=== PATIENT | female | born 1965 | race African-American/Black ===

== ENCOUNTER 2017-11-14 14:07 | Emergency (ER) | payer SELFPAY ==
[2017-11-14 15:22] LABS: #Eosinphils 0.4 thou/uL (0.0-0.7); #Lymphocytes 1.7 thou/uL (1.20-3.40); #Monocytes 0.8 thou/uL (0.11-0.59); #Neutrophils 9.1 thou/uL (1.40-6.50); %Basophils 0.3 % (0.0-1.0); %Lymphocytes 14.2 % (21.0-51.0); %Monocytes 6.8 % (0.0-10.0); %Neutrophils 75.7 % (42.0-75.0); Hemoglobin 12.8 g/dL (12.0-16.0); Mean Corpuscular HGB CONC 32.3 g/dL (32.0-36.0); Mean Corpuscular Hemoglobin 28.4 pg (27.0-31.0); Mean Corpuscular Volume 87.9 fl (81.0-99.0); Mean Platelet Volume 6.9 fL (7.4-10.4); Platelet Count 407 thou/uL (130-400); RBC Distribution Width 12.8 % (11.5-14.5); Red Blood Cell (RBC) Count 4.49 mill/uL (4.20-5.40)
[2017-11-14 15:43] LABS: ALT (SGPT) 55 U/L (8-55); AST (SGOT) 45 U/L (5-34); Albumin 3.2 g/dL (3.5-5.0); Alkaline Phosphatase 153 U/L (40-150); Anion Gap 15 mmol/L (10-20); BUN (Urea Nitrogen) 13 mg/dL (9.8-20.1); Bilirubin, Total 0.5 mg/dL (0.2-1.2); Calc. Creatinine Clearance 0 mL/min (70-130); Calcium 9.2 mg/dL (7.8-10.44); Carbon Dioxide 28 mmol/L (22-29); Chloride 98 mmol/L (98-107); Estimated GFR-MDRD Greater than 90; Globulin 4.6 g/dL (2.4-3.5); Glucose 96 mg/dL (70-105); Potassium 3.2 mmol/L (3.5-5.1); Protein, Total 7.8 g/dL (6.0-8.3); Sodium 138 mmol/L (136-145)
--- NOTE | 2017-11-14 16:07 | RAD ---
RADIOGRAPH CHEST 1 VIEW: Date: 11/14/17 Time: 3:14 p.m. HISTORY: 52-year-old female with cough. COMPARISON: 02/23/15 FINDINGS: The lungs are hypoinflated. Horizontally oriented streaky densities at the left base appears more pro minent on the current study compared to the previous. This is probably scar. The other possibility is subsegmental atelectasis. Much more subtle, but similar findings are noted at the right base. The up per lobes are clear of consolidation and pulmonary edema. There is a questionable faint, flame-shaped low density lesion, versus artifact, in the left upper lobe. No cardiomegaly or pneumothorax. The pr eviously demonstrated right subclavian central vascular catheter has been removed. IMPRESSION: 1. Bibasilar pulmonary scar and/or subsegmental atelectasis. 2. Faint nodular opacity in the left suprahilar upper lobe. Artifact versus real. 3. No definitive evidence of pneumonia. 4. Followup recommended. TWAN [] POS: [facility]
[2017-11-14] MEDS ORDERED: Albuterol Sulfate 2.5 mg/0.5 ml Neb ONE (16:42)
[2017-11-14] MEDS ORDERED: Albuterol Sulfate 2.5 mg/3 ml Neb ONE (16:42)
[2017-11-14] MEDS ORDERED: Potassium Chloride 20 MEQ TAB ONE (17:03)
[2017-11-14] MEDS ORDERED: predniSONE 20 MG TAB ONE (17:03)
== END 2017-11-14 18:11 | disposition home or self-care (01) ==
LOC: ERS 14:07
DX: J40 Bronchitis, not specified as acute or chronic (principal); F41.9 Anxiety disorder, unspecified; F32.9 Major depressive disorder, single episode, unspecified; Z79.899 Other long term (current) drug therapy
CPT/HCPCS: 36415; 71045; 80053; 85025; 94640; J7506; J7611

== ENCOUNTER 2018-02-09 19:48 | Inpatient (IN) | payer SELFPAY ==
[2018-02-09 20:39] LABS: Actual Bicarbonate (HCO3a) 19.1 mEq/L (22-28); Base Excess (BEa) -3.7 mEq/L (-2.0 to +3.0); CO2 Tension 28.1 mmHg (35.0-45.0); Hematocrit-ABG 40.2 % (36.0-47.0); O2 Tension (PaO2) 78.6 mmHg (80.0-100.0); pH, Arterial 7.45 (7.35-7.45)
[2018-02-09 20:40] LABS: ALV-art Gradient 599.275 (0-20); Analyzer IN Cardio ER; Hemoglobin (Hb) 12.5 g/dL (12.0-16.0); Puncture Site LRA
[2018-02-09] MEDS ORDERED: Potassium Chloride 20 MEQ/100 ML PREMIX BAG ONE (21:15)
[2018-02-09] MEDS ORDERED: Rocuronium Bromide 50 MG/5 ML VIAL ONE (21:24)
[2018-02-09] MEDS ORDERED: Succinylcholine Chloride 20 MG/ML 10 ml SYRINGE FS ONE (21:30)
[2018-02-09] MEDS ORDERED: Fentanyl 100 MCG/2 ML VIAL ONE (21:46)
[2018-02-09] MEDS ORDERED: Propofol 1,000 MG/100 ML VIAL IV ONE (21:48)
[2018-02-09] MEDS ORDERED: Propofol BOLUS 1,000 MG/100 ML VIAL IV PRN ×2 (21:53→23:25)
[2018-02-09] MEDS ORDERED: fentaNYL Citrate/PF 2,000 MCG in Sodium Chloride 0.9% 60 ML IV SCH ×2 (21:53→23:25)
[2018-02-09] MEDS ORDERED: DISCONTINUE PREVIOUS NARCOTIC PAIN MEDICATIONS AND BENZODIAZEPINES FS SCH ×2 (21:53→23:25)
[2018-02-09] MEDS ORDERED: Propofol 1,000 MG/100 ML VIAL IV PRN (21:53)
[2018-02-09] MEDS ORDERED: Fentanyl BOLUS 250 ML IVPB PRN ×2 (21:53→23:25)
[2018-02-09 22:12] LABS: Actual Bicarbonate (HCO3a) 18.5 mEq/L (22-28); Base Excess (BEa) -6.4 mEq/L (-2.0 to +3.0); CO2 Tension 35.3 mmHg (35.0-45.0); Hematocrit-ABG 41.8 % (36.0-47.0); O2 Tension (PaO2) 98.7 mmHg (80.0-100.0); pH, Arterial 7.34 (7.35-7.45)
[2018-02-09 22:14] LABS: ALV-art Gradient 570.175 (0-20); Analyzer IN Cardio ER; Calcium, Ionized 1.1 mmol/L (1.12-1.30); Puncture Site RRA
[2018-02-09] MEDS ORDERED: Benzocaine 20% Spray 60 ML CAN ONE (23:07)
[2018-02-09] MEDS ORDERED: Ondansetron HCl/PF 4 MG/2 ML Vial IVP PRN (23:18)
[2018-02-09] MEDS ORDERED: Ventilator Sedation Protocol 1 EACH FS ONE (23:21)
[2018-02-09] MEDS ORDERED: Lorazepam 2 MG/ML VIAL SLOW IVP PRN (23:25)
[2018-02-09 23:43] LABS: Bilirubin Small (Negative); Blood, Urine Small (Negative); Clarity CLEAR (Clear); Glucose, Urine (Dipstick) Negative (Negative); Leukocyte Negative (Negative); Nitrite Negative (Negative); Protein, Urine (Dipstick) 100 mg/dL (Neg-Trace)
[2018-02-09] MEDS ORDERED: Vancomycin HCl 1 GM in Premix Bag 1 BAG IVPB SCH (23:45)
[2018-02-09 23:46] LABS: Bacteria/HPF None Seen HPF (None Seen); Hyaline Casts/LPF 0-3 HYALINE CAST LPF (0-3 Hyaline); RBC/HPF None Seen HPF (0-3); Squamous Epithelial None Seen HPF (0-3); WBC/HPF None Seen HPF (0-3)
[2018-02-09 23:51] LABS: Specific Gravity, Urine 1.056 (1.002-1.036)
[2018-02-09] MEDS ORDERED: Piperacillin/Tazobactam 3.375 GM in Sodium Chloride 0.9% 100 ML IVPB SCH (23:59)
--- NOTE | 2018-02-10 00:33 | RAD ---
ONE VIEW CHEST: HISTORY: Intubation. COMPARISON: 02/09/2018 at 4:41 p.m. FINDINGS: Interval placement of an endotracheal tube at the level of the clavicles. Worsening interstitial and alveolar infiltrates, with a predominantly perihilar distribution. IMPRESSION: 1. Worsening infiltrates. 2. Interval placement of endotracheal tube. POS: [facility]
[2018-02-10] MEDS: Sodium Chloride 0.9% 1,000 ML IV SCH ×2 (01:23→09:32)
[2018-02-10 01:47] VITALS: BMI 31.9
--- NOTE | 2018-02-10 01:49 | RAD ---
CHEST ONE VIEW: HISTORY: Status post OG placement. COMPARISON: 02/09/2018 at 9:58 p.m. FINDINGS: Interval placement of an orogastric tube, terminating in the left upper quadrant. Stable endotrachea l tube. Persistent opacification of the lung parenchyma. IMPRESSION: Interval placement of orogastric tube. Otherwise, no change. POS: [facility]
[2018-02-10] MEDS: Piperacillin/Tazobactam 3.375 GM in Sodium Chloride 0.9% 100 ML IVPB SCH ×4 (02:48→21:58)
[2018-02-10] MEDS ORDERED: Sodium Chloride 0.9% 1,000 ML IV SCH (03:15)
[2018-02-10] MEDS ORDERED: CCU Electrolyte Replacement 1 EACH FS ONE (03:19)
[2018-02-10] MEDS ORDERED: Potassium Phosphate 15 MMOL in Sodium Chloride 0.9% 250 ML 250 ML IV PRN (03:33)
[2018-02-10] MEDS ORDERED: CCU ELECTROLYTE REPLACEMENT PROTOCOL FS PRN (03:33)
[2018-02-10] MEDS ORDERED: Magnesium Oxide 400 MG TAB PO PRN ×2 (03:33)
[2018-02-10] MEDS ORDERED: Potassium Phosphate 9 MMOL in Sodium Chloride 0.9% 100 ML IVPB PRN (03:33)
[2018-02-10] MEDS ORDERED: Potassium Phosphate 12 MMOL in Sodium Chloride 0.9% 250 ML 250 ML IV PRN (03:33)
[2018-02-10] MEDS ORDERED: Potassium Chloride 40 MEQ in Sodium Chloride 0.9% 250 ML 250 ML IVPB PRN (03:33)
[2018-02-10] MEDS ORDERED: Potassium Chloride 20 MEQ TAB PO PRN (03:33)
[2018-02-10] MEDS ORDERED: Potassium Chloride 40 MEQ in Premix Bag 1 BAG IVPB PRN (03:33)
[2018-02-10] MEDS ORDERED: Magnesium 2 GM/NS 0.9% 100 ML 2 GM in Premix Bag 1 BAG IVPB PRN (03:33)
[2018-02-10 05:13] LABS: Troponin I 1.372 ng/mL (< 0.028)
[2018-02-10 05:18] LABS: Anion Gap 16 mmol/L (10-20); BUN (Urea Nitrogen) 14 mg/dL (9.8-20.1); Calc. Creatinine Clearance 97 mL/min (70-130); Carbon Dioxide 16 mmol/L (22-29); Chloride 109 mmol/L (98-107); Estimated GFR-MDRD 84; Glucose 204 mg/dL (70-105); Potassium 3.7 mmol/L (3.5-5.1); Sodium 137 mmol/L (136-145)
[2018-02-10 06:44] LABS: Hemoglobin 13.2 g/dL (12.0-16.0); Mean Corpuscular HGB CONC 32.8 g/dL (32.0-36.0); Mean Corpuscular Hemoglobin 28.4 pg (27.0-31.0); Mean Corpuscular Volume 86.8 fL (78.0-98.0); Platelet Count 360 thou/uL (130-400); Red Blood Cell (RBC) Count 4.63 mill/uL (4.20-5.40); White Blood Cell (WBC) Count 24.4 thou/uL (4.8-10.8)
[2018-02-10 06:48] LABS: Band 7 % (5-11); Lymphocytes 8 % (21-51); MDiff Complete? YES; Monocytes 5 % (0-10); Neutrophil 80 % (42-75)
[2018-02-10 07:48] LABS: Actual Bicarbonate (HCO3a) 18.7 mEq/L (22-28); Base Excess (BEa) -7.9 mEq/L (-2.0 to +3.0); CO2 Tension 42.6 mmHg (35.0-45.0); O2 Tension (PaO2) 76.4 mmHg (80.0-100.0); pH, Arterial 7.26 (7.35-7.45)
[2018-02-10 07:49] LABS: Hemoglobin (Hb) 12.8 g/dL (12.0-16.0); Puncture Site RRA
--- NOTE | 2018-02-10 07:57 | HP ---
CODE STATUS: FULL CODE. TIME OF EVALUATION: 2230 hours. PRIMARY CARE PHYSICIAN: Broderick Santos M.D. CHIEF COMPLAINT: Worsening shortness of breath. HISTORY OF PRESENT ILLNESS: This is a 52 years old female patient with past medical history of heart murmur, BPPV, patient came to the hospital after having severe gradually worsening shortness of marko th, she was transferred from [facility], and the patient had the symptoms for 2 weeks, but getting w orse today, the patient was seen in ER and was on monitor with respiratory treatment, patient m ask, and therefore intubated, due to acute hypoxic respiratory failure. Symptoms are severe, likely triggered by underlying pneumonia, no alleviating factors. REVIEW OF SYSTEMS: The patient was intubated and sedated by the time of my evaluation. PAST MEDICAL HISTORY: Heart murmur, BPPV, chronic nausea and vomiting. PAST SURGICAL HISTORY: Cholecystectomy, laparoscopic. PSYCHIATRIC HISTORY: Positive for anxiety. SOCIAL HISTORY: No alcohol, no drug use. KNOWN ALLERGIES: No known drug allergies. REPORTED MEDICATIONS: Trazodone, K-Dur, sertraline, hydroxyzine, olanzapine, ondansetron. PHYSICAL EXAMINATION: VITAL SIGNS: On presentation, blood pressure 116/74, with heart rate 103, respiratory rate was 34, t emperature 98.1, oxygen saturation 94% on nonrebreather and beginning intubation. GENERAL APPEARANCE: The patient is intubated, sedated. HEENT: Eyes: Normal conjunctivae. Moist oral mucosa. Anicteric. NECK: No JVD. RESPIRATORY: Bilateral air entry. The patient has bilateral rales, symmetric expansion. CARDIOVASCULAR: Normal rate, regular rhythm, no murmurs, no gallop, no edema. ABDOMEN: Soft, normal bowel sounds. MUSCULOSKELETAL: Baseline range of motion and strength. No tenderness. SKIN: Warm and intact. No pallor or rash or redness. NEUROLOGIC: The patient is intubated, sedated, unable to fully explore. PSYCHIATRIC: The patient is intubated and sedated, unable to fully explore. The EKG was reviewed by myself. The patient has sinus tachycardia at the rate of 102. ST segment an d T waves are normal. Chest x-ray was reviewed. The patient had ET tube placement worsening i nfiltrates. LABORATORY DATA: ABG post-intubation was reviewed. The patient has pH of 7.34 with pO2 of 98, oxyge n 98.7, mode support volume control, mechanical rate 15, oxygen 100, tidal volume 400, PEEP 5. Urine was done and was negative. Hematology: White count 25, hemoglobin 13, MCV 74, platelet count 377. Chemistry was reviewed. The patient has sodium 135, potassium 2.6, anion gap 21, carbon dioxide 18, creatinine 0.8, glucose 179. Lactic acid 2.8, calcium 9.3, total bilirubin 1.3. AST 49, ALT 101, a lkaline phosphatase 178. Troponin 0.33. Beta natriuretic peptide 106. Urine was done and was negat ben. ASSESSMENT AND PLAN: The patient will be placed in the ICU for the following medical problems. 1. Multilobar pneumonia, patient will be placed on antibiotics, reconcile antibiotics depending on c ulture results, this problem is leading to respiratory failure needing intubation. 2. Acute hypoxic respiratory failure. The patient did not tolerate nonrebreather mask, was elective ly intubated. We will call Pulmonary for assistance with this patient. 3. Sepsis. The patient came in with tachycardia, tachypnea, respiratory failure, sources of multilo bar pneumonia. Continue hydration, treatment as above. 4. Hypokalemia. The patient's potassium 2.6. We will replace electrolytes as needed. Electrolyte replacement protocol. 5. Hyponatremia. Sodium 135, this is mild, no need for any acute intervention. The patient already getting fluids. 6. Hyperglycemia, glucose 179, we will monitor, no need for any acute intervention at this point. 7. Non ST elevation myocardial infarction type 2, likely secondary to underlying sepsis. We will tr end troponins, we will treat the underlying condition. 8. Possible component of underlying congestive heart failure, beta natriuretic peptide was 106, we w ill do echo in the morning. 9. Deep venous thrombosis prophylaxis.
[2018-02-10] MEDS ORDERED: Furosemide 40 MG/4 ML VIAL SLOW IVP SCH (08:45)
[2018-02-10] MEDS ORDERED: Doxycycline 100 MG in Syringe 0 ML IVPB SCH (09:00)
[2018-02-10] MEDS: Famotidine/PF 20 mg/2ml Vial SLOW IVP SCH ×2 (09:31→22:51)
[2018-02-10] MEDS: Enoxaparin Sodium 40 MG/0.4 ML SYRINGE SC SCH (09:31)
[2018-02-10 10:01] LABS: Amphetamine Not Detected (NotDetected); Barbiturates Screen Not Detected (NotDetected); Benzodiazepine Screen Not Detected (NotDetected); Cocaine Metabolite Screen Not Detected (NotDetected); Medtox Control Line Valid? VALID (VALID); Medtox Reader # READER 1; Methadone Not Detected (NotDetected); Methamphetamine Not Detected (NotDetected); Opiate Screen Not Detected (NotDetected); Oxycodone Screen Not Detected (NotDetected); Phencyclidine (PCP) Not Detected (NotDetected); THC/Cannabinoid Screen Not Detected (NotDetected); Tricyclic Screen Not Detected (NotDetected)
[2018-02-10] MEDS: Vancomycin HCl 1.25 GM in Sodium Chloride 0.9% 250 ML 250 ML IVPB SCH ×2 (11:15→22:50)
[2018-02-10] MEDS ORDERED: EPINEPHrine 1 MG/10 ML Abboject SYRINGE ONE ×2 (12:00→21:38)
--- NOTE | 2018-02-10 12:36 | CON ---
DATE OF CONSULTATION: 02/10/2018 REASON FOR CONSULTATION: Respiratory insufficiency. HISTORY OF PRESENT ILLNESS: Mrs. Gardiner is a 52-year-old -[place] female who comes to the [facility] for shortness of breath. She was in respiratory distress and ended up being intubated due to n ot tolerating BiPAP. She is currently sedated and intubated and unable to give me any history. Look ing back at her notes, she has been in the ER several times in the last 4-5 months. Every time she c omes in, she is very anxious and she was given Ativan and sent home. The last time she was seen, she was positive for methamphetamines on her urine drug screen. At this time around, she was evaluated for this respiratory insufficiency and a CT of the chest showed bilateral infiltrates which could be pulmonary edema versus infection. Because of her elevated white count, it was thought to be infectio n. She was started on antibiotics. Cardiology is being consulted as her troponins are starting to e levate. PAST MEDICAL HISTORY: 1. History of a heart murmur. 2. History of benign positional paroxysmal vertigo. 3. Chronic nausea and vomiting. 4. Anxiety. PAST SURGICAL HISTORY: Cholecystectomy. OUTPATIENT MEDICATIONS: Include, 1. Zofran daily. 2. Zyprexa. 3. Atarax. 4. Trazodone. 5. Zoloft. 6. Potassium twice a day. ALLERGIES: No known drug allergies. SOCIAL HISTORY: Per chart review, it states no alcohol, tobacco, or drugs; however, she has had posi tive drug screen for methamphetamines. REVIEW OF SYSTEMS: Unobtainable as the patient is sedated and intubated. PHYSICAL EXAMINATION: VITAL SIGNS: Temperature 97.8, pulse 98, respiratory rate 19, satting 98% on 100% FiO2. GENERAL: Sedated and intubated. LUNGS: Have coarse breath sounds bilaterally. CARDIOVASCULAR: S1, S2, tachycardic. I do not appreciate any murmurs; however, distant heart sounds due to coarse breath sounds. ABDOMEN: Soft, positive bowel sounds. EXTREMITIES: No edema. SKIN: Warm and dry. LABORATORY DATA AND IMAGING DATA: Laboratory work was reviewed. CBC with white count of 24, hemoglo bin of 13, hematocrit 40, platelet count of 360. ABGs were reviewed. Chemistries were reviewed, unr emarkable except for potassium was 3.23 and replaced and now. Troponin was 1.3 up from 0.9. UA with small amount of blood, small amount of bilirubin. CT of the thorax was reviewed, bilateral infiltrates suggestive either edema versus infection. Echocardiogram reviewed. Severely depressed EF at about 10%-15%. The only bryanna segments are the proximal segments and they are also mildly hypokinetic, otherwise severe hypokinesis. No apical ballooning is seen. This is suggestive of either a large LAD would not go with her level of tr oponin versus Takotsubo cardiomyopathy. This may also just be dilated cardiomyopathy related to drug use. ASSESSMENT AND PLAN: 1. Acute on chronic systolic heart failure. 1. Acute hypoxic respiratory insufficiency. 2. Possible pneumonia. 3. Anxiety. 4. Chronic nausea and vomiting. 5. Ngt-VD-neybdxt elevation myocardial infarction. PLAN: 1. We will try to start diuresing her. Hopefully, her blood pressure will hold. If it does not, sh e may need to be started on inotropic support. I would pick dopamine first. 2. IV antibiotics per primary team. 3. Try to keep potassium above 3.5. 4. We will likely need a heart catheterization once more stable. The amount of myocardium that is s everely hypokinetic would make her troponin be above assay limit and at the level it is right now, th is elevated troponin is most likely demand ischemia from her current illness. Thank you for allowing us to participate in the care of your patient. We will continue to follow.
--- NOTE | 2018-02-10 13:32 | PDOC.EVN ---
Event Note - Event Note Event Note: Reviewed the patient's record and examined the patient. She is stable on the vent. Easily awakened. Still has some pulmonary rales. Has severely decreased EF at 10-15% and global hypokinesis. Pulmonary edema v. pneumonia. Getting diuresis and antibiotic coverage.
[2018-02-10] MEDS: Furosemide 40 MG/4 ML VIAL SLOW IVP SCH (13:38)
[2018-02-10 13:42] LABS: Actual Bicarbonate (HCO3a) 16.1 mEq/L (22-28); Base Excess (BEa) -10.3 mEq/L (-2.0 to +3.0); CO2 Tension 37.5 mmHg (35.0-45.0); O2 Tension (PaO2) 84.7 mmHg (80.0-100.0); pH, Arterial 7.25 (7.35-7.45)
[2018-02-10 13:43] LABS: Hemoglobin (Hb) 12.9 g/dL (12.0-16.0)
[2018-02-10 13:45] LABS: ALV-art Gradient 224.925 (0-20); Calcium, Ionized 1.1 mmol/L (1.12-1.30); Puncture Site RRA
[2018-02-10] MEDS ORDERED: Furosemide 100 MG/10 ML VIAL SLOW IVP SCH (14:00)
[2018-02-10] MEDS: Propofol 1,000 MG/100 ML VIAL IV PRN (14:42)
[2018-02-10] MEDS ORDERED: EPINEPHrine 1 MG, Admixture Fee 1 EACH in Dextrose 5% in Water 250 ML IVPB SCH (21:00)
[2018-02-10] MEDS ORDERED: Sodium Bicarb 50 MEQ/50 ML Abboject 8.4% SYRINGE ONE (21:10)
[2018-02-10 21:13] LABS: CO2 Tension 33.1 mmHg (35.0-45.0); pH, Arterial 7.16 (7.35-7.45)
[2018-02-10 21:14] LABS: Actual Bicarbonate (HCO3a) 11.5 mEq/L (22-28); Base Excess (BEa) -18.1 mEq/L (-2.0 to +3.0)
[2018-02-10 21:15] LABS: Hematocrit-ABG 39.9 % (36.0-47.0); Hemoglobin (Hb) 12.9 g/dL (12.0-16.0)
[2018-02-10 21:16] LABS: Puncture Site FEMORAL
[2018-02-10 21:18] LABS: ALV-art Gradient 263.625 (0-20)
[2018-02-10] MEDS: Sodium Bicarb 50 MEQ/50 ML Abboject 8.4% SYRINGE IVP SCH ×2 (21:23→23:42)
[2018-02-10] MEDS: EPINEPHrine 4 MG in Dextrose 5% in Water 250 ML IV SCH (21:23)
[2018-02-10] MEDS: Sodium Bicarbonate 150 MEQ in Dextrose 5% in Water 1,000 ML IV SCH (21:23)
[2018-02-10] MEDS ORDERED: methylPREDNISolone Sod Succ/PF 125 MG/2 ML VIAL IVP SCH (21:30)
[2018-02-10] MEDS ORDERED: Magnesium 5 GM/10 ML Abboject SYRINGE ONE (21:38)
[2018-02-10 21:46] LABS: Actual Bicarbonate (HCO3a) 18.3 mEq/L (22-28); CO2 Tension 45.8 mmHg (35.0-45.0); O2 Tension (PaO2) 89.7 mmHg (80.0-100.0); pH, Arterial 7.22 (7.35-7.45)
[2018-02-10 21:47] LABS: Base Excess (BEa) -9.1 mEq/L (-2.0 to +3.0); Calcium, Ionized 0.9 mmol/L (1.12-1.30); Hemoglobin (Hb) 10.9 g/dL (12.0-16.0)
[2018-02-10 21:48] LABS: Puncture Site FEMORAL
[2018-02-10] MEDS ORDERED: Vasopressin 40 UNIT, Admixture Fee 1 EACH in Sodium Chloride 0.9% 100 ML IV SCH (22:30)
--- NOTE | 2018-02-10 22:43 | CON ---
DATE OF CONSULTATION: 02/10/2018 SUBJECTIVE: This is a 52-year-old female. It really had a short period of symptoms prior to coming to the hospital. She told her mother that she was not feeling well and [facility] breath and malaise. Prior to the admissions, her symptoms had only been mild. Her sister says that she may have been fahad d she has lupus recently. She subsequently has been intubated and is mechanically ventilated. PAST MEDICAL HISTORY: Remarkable for cholecystectomy in the past and history of heart murmur. SOCIAL HISTORY: She is nonsmoker, nondrinker and nondrug user. ALLERGIES: She has no drug allergies. MEDICATIONS: Prior to admission, she was on trazodone for anxiety, potassium, Zoloft, hydroxyzine, o lanzapine and Zofran. PHYSICAL EXAMINATION: GENERAL: She was sedated for mechanical ventilation. VITAL SIGNS: Blood pressure 116/78, heart rate 107, respiratory rate is 24. She is afebrile. HEENT: Pupils are equal. Sclerae is anicteric. NECK: Supple. LUNGS: Remarkable for rhonchi bilaterally. HEART: Regular rhythm. S1 and S2 are normal. Grade 2/6 systolic murmur. ABDOMEN: Soft and nontender. EXTREMITIES: Without asymmetry or edema. NEUROLOGIC: Grossly nonfocal. She spontaneously moves all extremities. LABORATORY DATA: White count 24.4, hemoglobin 13.2, platelets 360,000, 80 segs, 7 bands. Sodium 137 , potassium 3.7, chloride 109, bicarbonate 16, BUN 14, creatinine 0.8. Blood gas; 7.26, pCO2 of 42, pO2 of 76. Airway plateau pressure with a tidal volume of 400 was in the high 30s to low 40s, so we placed on bi level ventilation. Repeat blood gas shows pH 7.25, pCO2 37, pO2 84. Her rate was increased from 20-24. IMAGING DATA: Chest radiograph shows patchy bilateral alveolar infiltrates. IMPRESSION: Community-acquired pneumonia. I doubt this is alveolar hemorrhage associated with lupus or lupus flare, but this must be kept in mind. Need to talk to family and see who made "diagnosis o f lupus." We will be happy to follow with the other physicians caring for her. Hopefully, she will stabilize, met with family and answered all their questions. Critical care time 40 minutes.
[2018-02-10] MEDS: Thiamine HCl 200 MG/2 ML VIAL SLOW IVP SCH (22:51)
[2018-02-11] MEDS: EPINEPHrine 4 MG in Dextrose 5% in Water 250 ML IV SCH ×4 (00:24→14:25)
--- NOTE | 2018-02-11 01:36 | PRG ---
DATE OF SERVICE: 02/10/2018 This is a critical care progress note counseling 90 minutes of critical care time at the bedside. I was contacted by critical care nurses. Ms. Gardiner' blood pressure had been declining. Blood gas was done showing progressive acidemia. I attended at the bedside shortly thereafter. An epinephrine drip was started prior to my arrival. Blood pressure was in the 70s when I arrived, heart rate was surprisingly only in the 90s. She was unresponsive. She had equal breath sounds. Her exhaled tidal volumes are not changed significantly from earlier in the day. PH was 7.16, pCO2 of 33, pO2 of 49. I elected to place an arterial line and the central line. For brief period, she did not have a detectable blood pressure, but did have a weak and thready pulse. A 0.5 mg of epinephrine was given, which brought her blood pressure up to 130/100 by cuff. At that point, I could feel an excellent pulse in her left groin. Her left femoral vein was cannulated with a needle and a J-wire was inserted. A left femoral artery was cannulated with a needle and a J-wire was inserted. Central line and arterial line was then inserted. Bicarbonate has been given intravenously plus bicarbonate drip has been started. She will be given IV vitamin C and thiamine as well as continue with pressors and steroids. Hopefully, we will see gradual improvement overnight. I met with the . The nurses thought they can smell alcohol in his breath. I met with her sister is a former employer at [employer], I know very well. I have also met with the mother and explained that will be fortunate if we get her through the night. We will continue with aggressive support, because of her young age, but her multiple comorbidities will dramatically decreased her chances of survival. She will most certainly develop renal failure. It is interesting to note that she is not bacteremic per cultures that have been checked so far. Hopefully, we will see stabilization overnight, but prognosis is extremely guarded. I have explained to the that I am not think there is a high likelihood that she may not survive. He became very insistent transiently that he be allowed to go in the room. We are trying to put lines and we almost had to call security, but I did convince him to go sit in the conference room. He has been cooperative since that point. Critical care time: 90 minutes MTDD
[2018-02-11 01:40] LABS: CO2 Tension 20.4 mmHg (35.0-45.0); pH, Arterial 7.14 (7.35-7.45)
[2018-02-11 01:41] LABS: Actual Bicarbonate (HCO3a) 6.8 mEq/L (22-28); Base Excess (BEa) -20.4 mEq/L (-2.0 to +3.0); O2 Tension (PaO2) 150.1 mmHg (80.0-100.0)
[2018-02-11 01:42] LABS: Hemoglobin (Hb) 11.6 g/dL (12.0-16.0)
[2018-02-11] MEDS ORDERED: Sterile Water 10 ML ONE (01:42)
[2018-02-11] MEDS ORDERED: Vecuronium 10 MG VIAL ONE (01:42)
[2018-02-11 01:43] LABS: Calcium, Ionized 0.9 mmol/L (1.12-1.30); Puncture Site ALINE
[2018-02-11] MEDS ORDERED: Vecuronium 10 MG VIAL IV PRN (01:49)
[2018-02-11] MEDS ORDERED: Sodium Bicarb 50 MEQ/50 ML Abboject 8.4% SYRINGE IVP PRN (01:50)
[2018-02-11] MEDS: Sodium Bicarb 50 MEQ/50 ML Abboject 8.4% SYRINGE ONE ×4 (01:50→01:52)
[2018-02-11] MEDS: Sodium Chloride 0.9% 1,000 ML IV SCH (01:58)
[2018-02-11] MEDS ORDERED: Sodium Bicarb 50 MEQ/50 ML Abboject 8.4% SYRINGE IVP SCH (02:00)
[2018-02-11] MEDS: Piperacillin/Tazobactam 3.375 GM in Sodium Chloride 0.9% 100 ML IVPB SCH ×4 (03:28→21:16)
[2018-02-11] MEDS: Sodium Bicarbonate 150 MEQ in Dextrose 5% in Water 1,000 ML IV SCH ×3 (04:28→19:27)
[2018-02-11] MEDS: Propofol 1,000 MG/100 ML VIAL IV PRN ×2 (04:35→23:15)
[2018-02-11 05:02] LABS: pH, Arterial 7.29 (7.35-7.45)
[2018-02-11 05:03] LABS: Actual Bicarbonate (HCO3a) 11.6 mEq/L (22-28); Base Excess (BEa) -13.3 mEq/L (-2.0 to +3.0); CO2 Tension 24.5 mmHg (35.0-45.0); Hemoglobin (Hb) 11.4 g/dL (12.0-16.0); O2 Tension (PaO2) 182.7 mmHg (80.0-100.0)
[2018-02-11 05:04] LABS: ALV-art Gradient 140.675 (0-20); Analyzer IN Cardio ER; Calcium, Ionized 0.8 mmol/L (1.12-1.30); Puncture Site ALINE
--- NOTE | 2018-02-11 05:07 | OP ---
DATE: 02/10/18 PROCEDURE: Central line placement. DESCRIPTION OF PROCEDURE: The patient's right groin was shaved. I had attempted to place a line on the left and was unable to cannulate an artery. I did cannulate the vein. Her left groin was shaved and she had an excellent pulse in her left femoral artery. Femoral vein was first cannulated and a J- wire was passed in a sterile fashion. Triple-lumen catheter was inserted and sewn in place x2. Femoral artery was then cannulated and a J-wire was passed. A 5-Upper Sorbian catheter was inserted and sewn in place x2. Excellent wave form was obtained in femoral artery. Sterile dressing was applied. The triple-lumen catheter was flushed. There was good blood return from all 3 ports. She tolerated both procedures well. These lines were placed emergently, so if she (00:48) 48 hours, we will replace these lines. YUKI
[2018-02-11] MEDS: Furosemide 40 MG/4 ML VIAL SLOW IVP SCH ×2 (06:43→14:25)
[2018-02-11 07:28] LABS: Hemoglobin 11.3 g/dL (12.0-16.0); Mean Corpuscular HGB CONC 32.6 g/dL (32.0-36.0); Mean Corpuscular Hemoglobin 28.4 pg (27.0-31.0); Mean Corpuscular Volume 87.1 fL (78.0-98.0); Platelet Count 297 thou/uL (130-400); RBC Distribution Width 14.4 % (11.5-14.5)
[2018-02-11 08:13] LABS: Actual Bicarbonate (HCO3a) 14.5 mEq/L (22-28); Base Excess (BEa) -9.1 mEq/L (-2.0 to +3.0); CO2 Tension 25.4 mmHg (35.0-45.0); Hemoglobin (Hb) 11.9 g/dL (12.0-16.0); O2 Tension (PaO2) 209.5 mmHg (80.0-100.0); pH, Arterial 7.37 (7.35-7.45)
[2018-02-11 08:14] LABS: Calcium, Ionized 0.8 mmol/L (1.12-1.30); Puncture Site LINE
[2018-02-11 08:42] LABS: Band 18 % (5-11); Crenated RBC MODERATE= 6-15 cells (100X) (None Seen); Lymphocytes 1 % (21-51); MDiff Complete? YES; Mean Platelet Volume 8.7 fL (7.4-10.4); Metamyelocyte 1 % (0-0); Monocytes 1 % (0-10); Neutrophil 78 % (42-75); Nucleated RBC 1 % (0); PLT Morphology Comment Appears Adequate; Reactive Lymphocytes 1 % (0-10); Red Blood Cell (RBC) Count 3.97 mill/uL (4.20-5.40); White Blood Cell (WBC) Count 23.8 thou/uL (4.8-10.8)
[2018-02-11 09:24] LABS: Albumin 2.4 g/dL (3.5-5.0)
[2018-02-11 09:25] LABS: Chloride 97 mmol/L (98-107); Sodium 148 mmol/L (136-145)
[2018-02-11 09:26] LABS: Calcium 6.9 mg/dL (7.8-10.44); Glucose 459 mg/dL (70-105)
[2018-02-11 09:27] LABS: Globulin 3.2 g/dL (2.4-3.5); Protein, Total 5.6 g/dL (6.0-8.3)
[2018-02-11 09:28] LABS: Anion Gap 38 mmol/L (10-20); Bilirubin, Total 2.2 mg/dL (0.2-1.2); Carbon Dioxide 16 mmol/L (22-29)
[2018-02-11] MEDS: Enoxaparin Sodium 40 MG/0.4 ML SYRINGE SC SCH (09:28)
[2018-02-11] MEDS: Famotidine/PF 20 mg/2ml Vial SLOW IVP SCH ×2 (09:28→21:15)
[2018-02-11 09:29] LABS: Alkaline Phosphatase 236 U/L (40-150)
[2018-02-11 09:30] LABS: Phosphorus 7.3 mg/dL (2.3-4.7)
[2018-02-11 09:31] LABS: BUN (Urea Nitrogen) 31 mg/dL (9.8-20.1)
[2018-02-11 09:34] LABS: Calc. Creatinine Clearance 31 mL/min (70-130); Estimated GFR-MDRD 23; Potassium 2.7 mmol/L (3.5-5.1)
[2018-02-11 10:42] LABS: ALT (SGPT) 6544 U/L (8-55)
--- NOTE | 2018-02-11 11:37 | PDOC.CTH ---
Cardiology Progress Note - Subjective She became hypotensive overnight and less responsive. She was started on an Epinephrine drip. She is very acidotic. She did not respond to IV lasix yesterday. - Objective Vital Signs Temp Pulse Resp BP Pulse Ox 02/11/18 10:31 110 H 02/11/18 10:00 30 H 02/11/18 08:20 111 H 02/11/18 08:00 97.5 F L 111 H 30 H 02/11/18 07:00 97.5 F L 02/11/18 06:00 30 H 02/11/18 04:00 30 H 02/11/18 01:49 106 H 61/46 L 02/11/18 00:05 102 H 25 H 96 02/11/18 00:00 97.9 F 02/10/18 23:36 102 H 84/48 L Admit Weight 174 lb Weight 174 lb 13.225 oz 02/10/18 02/11/18 02/12/18 06:59 06:59 06:59 Intake Total 1519.4 4142.8 Output Total 137 590 0 Balance 1382.4 3552.8 0 - Physical Examination General/Neuro: other: (Intuibated, unresponsive. ) Neck: carotid US brisk Lungs: other: (coarse biilat. /) Heart: RRR Abdomen: NT/ND Extremities: other: (no edema.) - Telemetry Telemetry Rhythm: S tach - Labs Result Diagrams: 02/11/18 07:01 02/11/18 08:14 Troponin/CKMB Troponin I 1.372 ng/mL (< 0.028) H* 02/10/18 04:25 - Assessment/Plan 1. Acute on chronic systolic heart failure. 2. Severely reduced LV function EF at 10-15% 3. Metabolic acidosis. 4. Septic shock 5. Pneumonia. 6. Possible Lupus diagnosis, needs clarification. PLAN: - Continue supportive care. - If her renal function does not improve would recommend starting innotropic support, would start dobutamine. - IV abx per primary sommer. - She is severely ill and would not be unexpected.
[2018-02-11] MEDS: Thiamine HCl 200 MG/2 ML VIAL SLOW IVP SCH ×2 (11:47→23:11)
[2018-02-11] MEDS: Vancomycin HCl 1.25 GM in Sodium Chloride 0.9% 250 ML 250 ML IVPB SCH ×2 (11:51→23:07)
[2018-02-11 12:02] LABS: AST (SGOT) Greater than 3500 U/L (5-34)
--- NOTE | 2018-02-11 18:23 | PRG ---
DATE OF SERVICE: 02/11/2018 SUBJECTIVE: Elsa Gardiner appears to have some improvement in her acid base disorder overnight. Her hemodynamics appear to be stabilizing as well. We are weaning her pressors slowly. OBJECTIVE: VITAL SIGNS: Heart rates 112, respiratory rate 30 per mechanical ventilation. Blood pressure 140/70 this afternoon. Intake and output is positive 3552. LUNGS: Remarkable for mild rhonchi anteriorly. HEART: Regular rhythm. ABDOMEN: Soft. EXTREMITIES: Without clubbing, cyanosis, or asymmetry. She is developing edema as expected. LABORATORY DATA: White count 23.8, hemoglobin 11.3, platelets 297. She has 18 % bands on her peripheral smear. Sodium 140, potassium 2.7, chloride 97, bicarbonate 16, BUN 31, creatinine 2.68. Urine output; she has been anuric essentially since 8:00 last night. IMPRESSION: 1. Acute renal failure on top of pneumonia and clinical sepsis. 2. Very severe cardiomyopathy with an ejection fraction of around 10%. She did not require dialysis. She will be unlikely that she can tolerate dialysis with her severe cardiomyopathy. 3. ? history of lupus, not a clinical issue at this time. 4. History of a cholecystectomy. 5. Metabolic acidosis, this is multifactorial. Hypoperfusion from her depressed left ventricular systolic function. She is inappropriately bradycardic she has been with an epinephrine drip going. I doubt this is lupus induced alveolar hemorrhage. 6. Anemia, likely of chronic disease 7. History of obesity. PLAN: Continue supportive care with pressors weaning slowly. Continue vitamin C, thiamine and steroids. Continue empiric antimicrobial therapy, suspect we will have to educate family about the risks of dialysis. Her mother tell me that she was tired of being sick and her mother had the impression when I met with her last night that she was actually giving up on life, not sure would be appropriate to start dialysis. I am not sure she would tolerate that if she comes to that point, I would not replace her potassium in the setting of anuric renal failure. Critical care time: 35 minutes MTDD
--- NOTE | 2018-02-11 21:35 | PDOC.PN ---
- Subjective Encounter Start Date: 02/11/18 Encounter Start Time: 09:00 - Objective Vital Signs & Weight: Vital Signs (12 hours) Temp Pulse Resp Pulse Ox 02/11/18 20:00 100.0 F H 02/11/18 18:48 108 H 02/11/18 18:47 115 H 30 H 99 02/11/18 18:00 30 H 02/11/18 16:00 30 H 02/11/18 15:15 116 H 02/11/18 15:00 99.3 F 02/11/18 14:00 30 H 02/11/18 13:21 112 H 02/11/18 12:00 30 H 02/11/18 11:00 98.5 F 02/11/18 10:31 110 H 02/11/18 10:00 30 H Weight Admit Weight 174 lb Weight 174 lb 13.225 oz Most Recent Monitor Data Heart Rate from ECG 110 NIBP 126/73 NIBP BP-Mean 96 Respiration from ECG 30 SpO2 98 I&O: 02/10/18 02/11/18 02/12/18 06:59 06:59 06:59 Intake Total 1519.4 4142.8 3033.9 Output Total 137 590 0 Balance 1382.4 3552.8 3033.9 Result Diagrams: 02/11/18 07:01 02/11/18 08:14 Phys Exam - Physical Examination Intubated. Will lift eyelids slightly to stim. Otherwise unresponsive. Pupils minimally responsive. Respiratory: no wheezing, no rales, no rhonchi Cardiovascular: RRR, no significant murmur Gastrointestinal: soft, no distention Musculoskeletal: no edema Dx/Plan (1) Respiratory failure Code(s): J96.90 - RESPIRATORY FAILURE, UNSP, UNSP W HYPOXIA OR HYPERCAPNIA Status: Acute (2) Acidosis Code(s): E87.2 - ACIDOSIS Status: Acute (3) Pneumonia Code(s): J18.9 - PNEUMONIA, UNSPECIFIED ORGANISM Status: Acute (4) Cardiomyopathy Code(s): I42.9 - CARDIOMYOPATHY, UNSPECIFIED Status: Acute (5) Hypokalemia Code(s): E87.6 - HYPOKALEMIA Status: Acute (6) Acute renal failure Status: Acute - Plan * Dramatic decline overnight. Severe acidosis with severe oliguric renal failure. On bicarb gtt. Continue supportive care with abx, vent, bicarb. Pulmonary/CC and Cardiology following. Prognosis is poor.
[2018-02-11 22:23] LABS: Vancomycin, Trough 64.6 ug/mL
[2018-02-11 22:57] LABS: Vancomycin, Random 64.3 ug/mL (See Comment)
[2018-02-12] MEDS: Piperacillin/Tazobactam 3.375 GM in Sodium Chloride 0.9% 100 ML IVPB SCH ×2 (03:12→10:57)
[2018-02-12 03:41] LABS: Hemoglobin 12.2 g/dL (12.0-16.0); Mean Corpuscular HGB CONC 34.2 g/dL (32.0-36.0); Mean Corpuscular Hemoglobin 28.4 pg (27.0-31.0); Mean Platelet Volume 8.4 fL (7.4-10.4); Platelet Count 282 thou/uL (130-400); RBC Distribution Width 14.1 % (11.5-14.5); Red Blood Cell (RBC) Count 4.29 mill/uL (4.20-5.40); White Blood Cell (WBC) Count 32.6 thou/uL (4.8-10.8)
[2018-02-12 04:03] LABS: Band 4 % (5-11); Lymphocytes 2 % (21-51); MDiff Complete? YES; Metamyelocyte 1 % (0-0); Monocytes 6 % (0-10); Neutrophil 87 % (42-75); Nucleated RBC 2 % (0); PLT Morphology Comment Appears Adequate; RBC Morphology Normal
[2018-02-12 04:08] LABS: Anion Gap 31 mmol/L (10-20); BUN (Urea Nitrogen) 46 mg/dL (9.8-20.1); Calc. Creatinine Clearance 20 mL/min (70-130); Calcium 6.4 mg/dL (7.8-10.44); Carbon Dioxide 25 mmol/L (22-29); Chloride 91 mmol/L (98-107); Estimated GFR-MDRD 14; Glucose 435 mg/dL (70-105); Magnesium 1.7 mg/dL (1.6-2.6); Phosphorus 4.9 mg/dL (2.3-4.7); Potassium 2.8 mmol/L (3.5-5.1); Sodium 144 mmol/L (136-145)
[2018-02-12] MEDS ORDERED: Dextrose 50% Abboject 50 ML SYRINGE SLOW IVP PRN ×2 (05:16→07:38)
[2018-02-12] MEDS ORDERED: Dextrose 5% in Water 1,000 ML IV PRN ×2 (05:16→07:38)
[2018-02-12] MEDS ORDERED: Potassium Chloride 20 MEQ/100 ML PREMIX BAG IVPB SCH (05:30)
[2018-02-12] MEDS: Furosemide 40 MG/4 ML VIAL SLOW IVP SCH ×2 (06:00→13:59)
[2018-02-12] MEDS: Sodium Bicarbonate 150 MEQ in Dextrose 5% in Water 1,000 ML IV SCH ×3 (06:06→19:09)
[2018-02-12 06:34] LABS: Albumin 2.4 g/dL (3.5-5.0); Alkaline Phosphatase 323 U/L (40-150); Bilirubin, Total 2.6 mg/dL (0.2-1.2); Protein, Total 5.4 g/dL (6.0-8.3)
[2018-02-12 06:47] LABS: ALT (SGPT) 7041 U/L (8-55)
[2018-02-12 06:50] LABS: pH, Arterial 7.62 (7.35-7.45)
[2018-02-12 06:51] LABS: Actual Bicarbonate (HCO3a) 22.3 mEq/L (22-28); Base Excess (BEa) 2.5 mEq/L (-2.0 to +3.0); CO2 Tension 22.2 mmHg (35.0-45.0); Calcium, Ionized 0.7 mmol/L (1.12-1.30); Hemoglobin (Hb) 12.5 g/dL (12.0-16.0); O2 Tension (PaO2) 94.8 mmHg (80.0-100.0); Puncture Site LINE
[2018-02-12 07:21] LABS: AST (SGOT) Greater than 3500 U/L (5-34)
--- NOTE | 2018-02-12 07:52 | PDOC.PN ---
- Subjective Encounter Start Date: 02/12/18 Encounter Start Time: 07:44 Patient was having brief episodes of NSVT yesterday. This morning she had a sustained episode when turned and was apparently pulseless. Code was called. She now has recovery of her rhythm. She received mag, amio bolus and gtt now. Potassium was low and repleting now. - Objective Vital Signs & Weight: Vital Signs (12 hours) Temp Pulse Resp Pulse Ox 02/12/18 06:34 119 H 02/12/18 06:00 30 H 02/12/18 04:00 100.9 F H 30 H 02/12/18 02:24 111 H 02/12/18 02:00 30 H 02/12/18 00:00 99.6 F 30 H 02/11/18 23:57 109 H 30 H 100 02/11/18 22:15 114 H 02/11/18 22:00 30 H 02/11/18 20:00 100.0 F H 113 H 30 H 99 Weight Admit Weight 174 lb Weight 174 lb 13.225 oz Most Recent Monitor Data Heart Rate from ECG 93 NIBP 119/70 NIBP BP-Mean 82 Respiration from ECG 22 SpO2 97 I&O: 02/11/18 02/12/18 02/13/18 06:59 06:59 06:59 Intake Total 4142.8 5931.1 Output Total 590 70 Balance 3552.8 5861.1 Result Diagrams: 02/12/18 03:25 02/12/18 03:25 Additional Labs: Accuchecks 02/12/18 03:32 POC Glucose 454 H Phys Exam - Physical Examination Intubated Conjunctival erythema. Pupils minimally reacive and dilated. Scattered rales. No breathing above the vent. Tachy, irreg. Gastrointestinal: soft, no distention Mild edema Dx/Plan (1) Respiratory failure Code(s): J96.90 - RESPIRATORY FAILURE, UNSP, UNSP W HYPOXIA OR HYPERCAPNIA Status: Acute Comment: Diffuse pulmonary edema. On abx and steroids. (2) Acidosis Code(s): E87.2 - ACIDOSIS Status: Acute (3) Pneumonia Code(s): J18.9 - PNEUMONIA, UNSPECIFIED ORGANISM Status: Acute (4) Cardiomyopathy Code(s): I42.9 - CARDIOMYOPATHY, UNSPECIFIED Status: Acute (5) Hypokalemia Code(s): E87.6 - HYPOKALEMIA Status: Acute (6) Acute renal failure Status: Acute Comment: Anuric failure with doubling of the creatinine. (7) V-tach Code(s): I47.2 - VENTRICULAR TACHYCARDIA Status: Acute (8) Multiorgan failure Code(s): VUG9869 - Status: Acute (9) Hyperglycemia Code(s): R73.9 - HYPERGLYCEMIA, UNSPECIFIED Status: Acute Comment: Secondary to steroids. ISS. - Plan * Patient has multiorgan failure. Heart, lungs, kidneys, liver. Had VT arrest this morning. On amio and a bit more stable at the moment. Updated patient's sister and mother. called and spoke with nursing. Prognosis is extremely poor. Will attempt to meet with patient's in person as soon as we can make that happen.
--- NOTE | 2018-02-12 08:10 | PRG-2 ---
DATE OF SERVICE: EVENT: [facility]. RESIDENT: Flaco Lenz M.D. TIME OF CODE: 0708 hours on 02/12/2018. REASON FOR CODE: Sustained pulseless ventricular tachycardia. EVENT IN DETAIL: Provider responded to [facility] called overhead at previously stated time. Upon my arrival to the CCU room A8, nursing staff reported that the patient had been in pulseless sustained ventricular tachycardia, but had spontaneously converted. Nursing staff provided reports and stated that the patient had previously been on an epinephrine drip since previous night for the same cause. Stated that the nursing staff had weaned the patient off the epinephrine drip overnight. They stated that she began to experience intermittent runs of nonsustained ventricular tachycardia throughout the night. However, at the time the code was called the patient experienced a sustained run of ventricular tachycardia for between 1-2 minutes. Chest compressions were performed for approximately one minute and the patient spontaneously converted back to sinus tachycardia with a strong pulse. An order for amiodarone 300 mg IV push and initiation of an amiodarone drip was given. I reviewed the patient's lab, reveals hypokalemia at 2.8. Nursing staff stated they were giving 20 mEq dose of potassium at the time of the code. Additional review of labs revealed the patient had a magnesium of 1.7. Order for magnesium 2 grams IV push was given. After the amiodarone bolus was given and the drip was started the patient went into sinus rhythm versus sinus tachycardia with a rate in the upper 90s, low 100s. At this time she is no longer having the runs of nonsustained V-tach. Towards the end of the code it was noted the patient's oxygen saturations were dropping into the upper 80s to low 90s. An order for an increase in her FiO2 on her ventilator from 30% to 40% , was given. The patient has a history of asthma, so an order for an albuterol nebulizer was also given. Dr. Ozuna was called during the code and was in agreement with the plan. Further care to be directed by the primary team and Pulmonology/Critical Care. [facility] CENTERMarkos
[2018-02-12] MEDS ORDERED: Amiodarone In Dextrose 200 ML IVPB SCH (09:30)
--- NOTE | 2018-02-12 10:03 | PRG ---
DATE OF SERVICE: 02/12/2018 Ms. Gardiner has continued to deteriorate as outlined in the chart. The family has decided they wish do not resuscitate status, comfort care only.
[2018-02-12] MEDS: HumaLOG 300 UNITS/3 ML VIAL SC PRN ×3 (10:27→21:58)
[2018-02-12] MEDS: Piperacillin/Tazobactam 2.25 GM in Sodium Chloride 0.9% 100 ML IVPB SCH ×3 (10:35→21:13)
[2018-02-12] MEDS: Enoxaparin Sodium 40 MG/0.4 ML SYRINGE SC SCH (10:57)
[2018-02-12] MEDS: Famotidine/PF 20 mg/2ml Vial SLOW IVP SCH (10:57)
[2018-02-12] MEDS: Amiodarone HCl 450 MG, Admixture Fee 1 EACH in Dextrose 5% in Water 250 ML IVPB SCH (11:24)
[2018-02-12] MEDS: Thiamine HCl 200 MG/2 ML VIAL SLOW IVP SCH (11:32)
[2018-02-12 14:37] LABS: Potassium 3.2 mmol/L (3.5-5.1)
--- NOTE | 2018-02-12 19:36 | PRG ---
DATE OF SERVICE: 02/12/2018 SUBJECTIVE: Ms. Gardiner had a bad morning. She had ventricular tachycardia this morning. She was res uscitated. OBJECTIVE: VITAL SIGNS: Heart rate 108-110, respiratory rate is 20 turned down from 30 earlier this morning. O 2 sats 100%, blood pressure 103/47. Bicarbonate drip has been discontinued. LUNGS: Clear anteriorly. CARDIOVASCULAR: Regular rhythm. S1 and S2 are distant. ABDOMEN: Soft and nontender. EXTREMITIES: Without clubbing, cyanosis, or edema. She is anuric now. LABORATORY DATA: White count is 32,000, hemoglobin 12.2, platelets 282. Sodium 144, potassium 2.8, replaced to 3.2, chloride 91, bicarbonate 25, BUN 46, creatinine 4.08. IMPRESSION: 1. Status post ventricular tachycardia. 2. Severe systolic cardiomyopathy and ejection fraction of 10%. 3. Acute renal failure and is anuric now. 4. Diabetes with glucose control issues. 5. Sepsis, clinically with negative blood cultures. I suppose there is a chance that this is all ca rdiogenic shock. 6. Hepatic (01:50) with elevated liver enzymes in the thousands. AST is 3500, ALT is 7041 with temperature is secondary to her sepsis and refractory hypotension. All of her gas exchange and issues are resolving, but unfortunately, she has anuric renal failure on top of very severe systolic cardiomyopathy with sudden cardiac this morning. He says yesterday replaced her potassium with progressive renal dysfunction, but this has been done. I would not give her more potassium. Family has elected to make her a [id number]-[id number] patient. We will not withdraw care at this time was discussed with the and all the family members this morning. They are agreeable to this. We will continue with critical care management, short of repeating heroic measures. Critical care time 35 minutes.
[2018-02-12] MEDS ORDERED: Digoxin 0.5 MG/2 ML AMP ONE (20:30)
[2018-02-12] MEDS ORDERED: Digoxin 0.5 MG/2 ML AMP SLOW IVP SCH (20:45)
[2018-02-12] MEDS ORDERED: Famotidine/PF 20 mg/2ml Vial SLOW IVP SCH (21:00)
[2018-02-12 22:28] LABS: Vancomycin, Random 50.4 ug/mL (See Comment)
[2018-02-12] MEDS ORDERED: Vancomycin HCl 1.25 GM in Sodium Chloride 0.9% 250 ML 250 ML IVPB SCH (23:00)
[2018-02-12] MEDS: Propofol 1,000 MG/100 ML VIAL IV PRN (23:03)
[2018-02-13] MEDS: Thiamine HCl 200 MG/2 ML VIAL SLOW IVP SCH ×2 (00:12→10:20)
[2018-02-13] MEDS: Amiodarone HCl 450 MG, Admixture Fee 1 EACH in Dextrose 5% in Water 250 ML IVPB SCH ×2 (02:56→17:34)
[2018-02-13] MEDS: Sodium Bicarbonate 150 MEQ in Dextrose 5% in Water 1,000 ML IV SCH ×2 (03:18→10:20)
[2018-02-13] MEDS: Piperacillin/Tazobactam 2.25 GM in Sodium Chloride 0.9% 100 ML IVPB SCH ×3 (03:18→15:45)
[2018-02-13] MEDS: HumaLOG 300 UNITS/3 ML VIAL SC PRN ×3 (04:30→15:48)
[2018-02-13] MEDS: Furosemide 40 MG/4 ML VIAL SLOW IVP SCH (05:49)
[2018-02-13 07:55] LABS: Actual Bicarbonate (HCO3a) 24.2 mEq/L (22-28); Base Excess (BEa) 3.9 mEq/L (-2.0 to +3.0); CO2 Tension 22.7 mmHg (35.0-45.0); O2 Tension (PaO2) 128.3 mmHg (80.0-100.0); pH, Arterial 7.65 (7.35-7.45)
[2018-02-13 07:56] LABS: Calcium, Ionized 0.6 mmol/L (1.12-1.30); Hemoglobin (Hb) 8.9 g/dL (12.0-16.0); Puncture Site ALINE
[2018-02-13 07:57] LABS: ALV-art Gradient 128.525 (0-20)
--- NOTE | 2018-02-13 08:15 | PDOC.PN ---
- Subjective Encounter Start Date: 02/13/18 Encounter Start Time: 08:13 - Objective Resuscitation Status: Resuscitation Status DNR:Do Not Resuscitate Vital Signs & Weight: Vital Signs (12 hours) Temp Pulse Resp BP Pulse Ox 02/13/18 07:07 109 H 112/54 L 02/13/18 07:06 116 H 20 100 02/13/18 06:00 20 02/13/18 04:00 100.9 F H 20 02/13/18 02:07 107 H 02/13/18 02:00 20 02/13/18 00:30 96 20 100 02/13/18 00:00 98.8 F 20 02/12/18 22:47 115 H 02/12/18 22:00 20 02/12/18 20:57 110 H 02/12/18 20:35 110 H Weight Admit Weight 174 lb Weight 174 lb 13.225 oz Most Recent Monitor Data Heart Rate from ECG 114 NIBP 108/67 NIBP BP-Mean 82 Respiration from ECG 23 SpO2 99 I&O: 02/12/18 02/13/18 02/14/18 06:59 06:59 06:59 Intake Total 5931.1 4404.3 Output Total 70 130 Balance 5861.1 4274.3 Result Diagrams: 02/12/18 03:25 02/12/18 14:15 Additional Labs: Accuchecks 02/13/18 02/12/18 02/12/18 04:30 21:53 15:33 POC Glucose 405 H 412 H 437 H 02/12/18 10:23 POC Glucose 444 H Phys Exam - Physical Examination Constitutional: NAD Intubated Respiratory: no wheezing Scattered rales. Not breathing above the vent currently Cardiovascular: RRR, no significant murmur Gastrointestinal: soft, non-tender, no distention Generalized edema Does open eyes, but not following commands. Shakes her head at times. Unclear if this is actually in resonse to questions or random. Dx/Plan (1) Respiratory failure Code(s): J96.90 - RESPIRATORY FAILURE, UNSP, UNSP W HYPOXIA OR HYPERCAPNIA Status: Acute Comment: Diffuse pulmonary edema. On abx and steroids. (2) Acidosis Code(s): E87.2 - ACIDOSIS Status: Acute Comment: Resolved. Now alkalotic. Holding the bicarb. (3) Pneumonia Code(s): J18.9 - PNEUMONIA, UNSPECIFIED ORGANISM Status: Acute Comment: Cultures negative. May be more pulmonary edema and cardiogenic shock. Continuing Zosyn and Doxy. (4) Cardiomyopathy Code(s): I42.9 - CARDIOMYOPATHY, UNSPECIFIED Status: Acute Comment: EF 10%. Cardiogenic shock. (5) Hypokalemia Code(s): E87.6 - HYPOKALEMIA Status: Acute Comment: Anuric. Holding off on any further potassium repletion. Now just cellular shifts. (6) Acute renal failure Status: Acute Comment: Anuric failure with doubling of the creatinine. (7) V-tach Code(s): I47.2 - VENTRICULAR TACHYCARDIA Status: Acute Comment: Better since Amio started. (8) Multiorgan failure Code(s): YLH9907 - Status: Acute Comment: Cardiac, renal, pulmonary, hepatic failure. (9) Hyperglycemia Code(s): R73.9 - HYPERGLYCEMIA, UNSPECIFIED Status: Acute Comment: Secondary to steroids. ISS. (10) Afib Code(s): I48.91 - UNSPECIFIED ATRIAL FIBRILLATION Status: Acute Comment: On amio. Had RVR last evening. Had one dose of dig. - Plan * Prognosis is extremely poor given the multiorgan failure. She is DNR, but continuing aggressive care.
[2018-02-13 08:21] LABS: Anion Gap 35 mmol/L (10-20); BUN (Urea Nitrogen) 64 mg/dL (9.8-20.1); Calc. Creatinine Clearance 15 mL/min (70-130); Calcium 5.3 mg/dL (7.8-10.44); Carbon Dioxide 29 mmol/L (22-29); Chloride 83 mmol/L (98-107); Estimated GFR-MDRD 10; Glucose 314 mg/dL (70-105); Potassium 3.3 mmol/L (3.5-5.1); Sodium 144 mmol/L (136-145)
[2018-02-13] MEDS ORDERED: Dextrose 50% Abboject 50 ML SYRINGE SLOW IVP PRN (08:25)
[2018-02-13] MEDS ORDERED: Dextrose 5% in Water 1,000 ML IV PRN (08:25)
[2018-02-13] MEDS ORDERED: Calcium Chloride 13.6 MEQ in Sodium Chloride 0.9% 100 ML IVPB SCH (08:30)
[2018-02-13] MEDS ORDERED: Enoxaparin Sodium 30 MG/0.3 ML SYRINGE SC SCH (09:00)
--- NOTE | 2018-02-13 09:01 | PRG ---
DATE OF SERVICE: 02/13/2018 Ms. Gardiner remains intubated on the ventilator. The blood pressure is variable, it looks like 120-130 systolic. Pulse 110-120. It looks like sinus rhythm now. She had atrial fibrillation with a rapid rate last night. PHYSICAL EXAMINATION: LUNGS: Clear. CARDIAC: She is tachycardic for rest. ABDOMEN: Soft, nontender. EXTREMITIES: Warm and dry. The patient is making very little urine output. ASSESSMENT: 1. Multiorgan failure as outlined in the chart including renal failure. 2. Paroxysmal atrial fibrillation. PLAN: 1. She is on intravenous amiodarone. 2. Received digoxin 1 dose last night. 3. We will check potassium level. 4. Prognosis remains very poor in this unfortunate patient.
[2018-02-13] MEDS: Propofol 1,000 MG/100 ML VIAL IV PRN ×2 (10:39→17:36)
--- NOTE | 2018-02-13 10:58 | RAD ---
PORTABLE UPRIGHT FRONTAL CHEST RADIOGRAPH: Date: 02-13-18 Comparison: 02-09-18 History: Ventilated patient. FINDINGS: Endotracheal tube and nasogastric tube in stable proper position. There is blunting of the costophren ic angle suggesting small volume pleural fluid and/or volume loss. Aeration is improved within both l ungs when compared to the prior exam, with no lobar consolidation or alveolar edema. IMPRESSION: Mild increased density in the lung bases. Aeration in both lungs has significantly improved since the 02-09-18 exam. POS: [facility]
[2018-02-13] MEDS ORDERED: Digoxin 0.5 MG/2 ML AMP SLOW IVP SCH (11:30)
[2018-02-13] MEDS: Acetaminophen 650 MG/20.3 ML UDCUP PER TUBE PRN ×2 (11:37→17:36)
--- NOTE | 2018-02-13 13:50 | PRG ---
DATE OF SERVICE: 02/13/2018 SUBJECTIVE: Ms. Elsa Gardiner is intermittently in rapid atrial fibrillation. She is also intermitte ntly febrile. OBJECTIVE: VITAL SIGNS: Blood pressure 136/99, respiratory rates per mechanical ventilation. LUNGS: Remarkable for coarse equal breath sounds. HEART: Irregularly irregular. ABDOMEN: Soft. EXTREMITIES: Without asymmetry. LABORATORY DATA: There is no CBC today. Sodium 144, potassium 3.3, chloride 83, bicarbonate 29, BUN 64, creatinine 5.63. She remains anuric. IMAGING: Chest radiograph still shows bilateral alveolar infiltrates, but her pulmonary edema is imp roved. IMPRESSION: 1. Clinical sepsis. 2. Cardiogenic shock, . 3. Acute renal failure that is anuric. PLAN: Prognosis is dismal. She is a do not resuscitate patient. We will continue with supportive c are until she passes. Family, per my discussion with them yesterday is not really interested in with drawal support, really cannot see any way she can survive this. I also cannot see the dialysis is an y type of reasonable or viable option given that her ejection fraction is 10%.
[2018-02-13 13:54] VITALS: BP 124/60
[2018-02-13 16:14] VITALS: TEMP 102.4
[2018-02-13] MEDS: Morphine 4 MG/ML VIAL SLOW IVP SCH ×4 (18:55→19:25)
--- NOTE | 2018-02-14 12:37 | EKG ---
Test Reason : Blood Pressure : / mmHG Vent. Rate : 102 BPM Atrial Rate : 102 BPM P-R Int : 124 ms QRS Dur : 076 ms QT Int : 394 ms P-R-T Axes : 026 000 -13 degrees QTc Int : 513 ms Sinus tachycardia T wave abnormality, consider anterolateral ischemia Abnormal ECG Confirmed by KEVIN THOMPSON DO ([id number]), editor index ELENA ALCZAAR ([id number]) on 02/14/2018 12:36:43 PM Referred By: Confirmed By:KEVIN THOMPSON DO
== END 2018-02-13 19:31 | disposition expired | DRG 871 ==
LOC: ERS 19:48 → CCU 02-10 00:32
PROVIDERS: ADMIT Hospitalist; ATTEND Hospitalist
DX: A41.9 Sepsis, unspecified organism (principal); J96.00 Acute respiratory failure, unspecified whether with hypoxia or hypercapnia; J18.9 Pneumonia, unspecified organism; I50.23 Acute on chronic systolic (congestive) heart failure; N17.9 Acute kidney failure, unspecified; E87.2 Acidosis; I47.2 Ventricular tachycardia; E87.1 Hypo-osmolality and hyponatremia; R65.20 Severe sepsis without septic shock; I48.0 Paroxysmal atrial fibrillation; R57.0 Cardiogenic shock; Z66 Do not resuscitate; R73.9 Hyperglycemia, unspecified; D63.8 Anemia in other chronic diseases classified elsewhere; E66.9 Obesity, unspecified; F41.9 Anxiety disorder, unspecified; R11.2 Nausea with vomiting, unspecified
CPT/HCPCS: 31500; 36415; 36416; 51702; 71045; 80048; 80053; 80076; 80202; 80306; 81003; 81015; 82805; 83735; 84100; 84484; 85025; 93005; 93306; 94002; 94003; 94640; 94760; 96365; 96366; 96368; 96376; A4216; J0171; J0282; J1160; J1650; J1940; J2270; J2405; J2543; J2704; J2920; J2930; J3010; J3370; J3411; J3475; J3480; J7050; J7070; J7620; S0028